=== PATIENT | male | born 1950 | race African-American/Black ===

== ENCOUNTER → 2017-06-10 | Outpatient (CLI) | payer MEDICARE, OTHER ==
[~2017-06-10] MED LIST: ACTOS30 MG PO; AMOXICILLIN 8751 TAB PO; BREO IH; CIPRO 500MG TA500 MG PO; COLACE 100100 MG/CAP PO; DIABETA 5MG5 MG/TAB PO; HCTZ 25MG TAB25 MG PO; HYTRIN 5MG C5 MG/CAP PO; HYTRIN10 M1 PO; JANUVIA50 MG PO; LANTUS SOLOS100 U/ML SQ; NORCO 325 MG-51 TAB; PLENDIL10 MG PO; PRINIVIL40 MG PO; PYRIDIUM200 M1 PO; ZESTRIL40 MG PO; ZOCOR 40MG40 MG PO; ZOCOR 80MG80 MG PO; ZYLOPRIM 100MG100 MG PO
== END ==
LOC: COL.RAD 09:04
DX: S34.112A Complete lesion of L2 level of lumbar spinal cord, initial encounter (principal)
CPT/HCPCS: A9503

== ENCOUNTER → 2017-06-17 | Outpatient (CLI) | payer MEDICARE, OTHER | LOC: MHCPAIN 10:43 | DX: G89.29 Other chronic pain (principal); M47.817 Spondylosis without myelopathy or radiculopathy, lumbosacral region; M48.061 Spinal stenosis, lumbar region without neurogenic claudication | CPT/HCPCS: G0463 ==

== ENCOUNTER 2018-10-14 14:52 | Inpatient (IN) | payer MEDICARE, OTHER ==
[~2018-10-14] VITALS: Ht 165.1 cm; Wt 103.2 kg
[2018-10-14 16:41] VITALS: BP 147/75; PULSE 119; TEMP 97.5
[2018-10-14 16:43] LABS: BASO % 0.3 % (0.0-2.0); EOS # 0.1 (0.0-0.7); EOS % 0.4 % (0-4.0); GRAN # 8.7 (1.4-6.5); GRAN % 77.5 % (42.2-75.2); HEMATOCRIT 40.8 % (42.0-52.0); HEMOGLOBIN 12.7 g/dl (13.5-18.0); LYMPH # 1.4 (1.2-3.4); LYMPH % 12.3 % (20.0-51.0); MEAN CELL VOLUME 90 fl (80.0-100.0); MEAN CORPUSCULAR HEMOGLOBIN 28 pg (27.0-31.0); MEAN CORPUSCULAR HGB CONC 31 g/dl (33.0-37.0); MEAN PLATELET VOLUME 10.4 fl (7.4-10.4); MONO % 9.2 % (1.7-9.3); PLATELET COUNT 188 K/mm3 (130-400); RED BLOOD COUNT 4.52 M/mm3 (4.20-5.60); REDCELL DISTRIBUTION WIDTH-CV 13.1 % (11.5-14.5)
[2018-10-14 17:20] LABS: ALBUMIN 4.5 gm/dL (3.5-5.0); BILIRUBIN,TOTAL 1.4 mg/dL (0.0-1.0); CALCIUM 10.1 mg/dL (8.4-10.2); CREATININE, serum 1.87 (0.66-1.25); POTASSIUM 4.6 mmol/L (3.4-5.0); TOTAL PROTEIN 8.2 gm/dL (6.4-8.2)
[2018-10-14] MEDS ORDERED: ZYLOPRIM 100MG100 MG PO (17:21)
[2018-10-14] MEDS ORDERED: PLENDIL 2.5MG2.5 MG PO (17:23)
[2018-10-14] MEDS ORDERED: HCTZ 25MG TAB25 MG PO (17:24)
[2018-10-14] MEDS ORDERED: CLARITIN 1010 MG/TAB PO (17:25)
[2018-10-14] MEDS ORDERED: SINGULAIR 110 MG/TAB PO (17:25)
[2018-10-14] MEDS ORDERED: ACTOS 45MG45 MG/TAB PO (17:26)
[2018-10-14] MEDS ORDERED: MIRALAX PA17 GM/Dose PO (17:27)
[2018-10-14] MEDS ORDERED: ZOCOR 40MG40 MG PO (17:27)
--- NOTE | 2018-10-14 17:38 | NUR ---
admitted patient to room 315 completed 5 page and med rec with patient and spouse.
[2018-10-14 17:44] LABS: TSH w REFLEX 1.1 uIU/mL (0.465-4.680)
[2018-10-14 19:17] VITALS: BP 161/60; PULSE 131; TEMP 99.2
[2018-10-14 19:18] VITALS: BP 161/60; PULSE 131; TEMP 99.2
--- NOTE | 2018-10-14 19:22 | NUR ---
Report received from DANA Dutta
--- NOTE | 2018-10-14 20:37 | NUR ---
Resting in bed. Assessment complete. Lungs clear. Heart sounds normal, tachy. Graciela, ONLINE BANKING SPECIALIST aware and EKG and telemetry applied to patient at beginning of shift. Fluid bolus infusing at 500ml/hr as ordered into right upper arm with complications for tachycardia. Bowels active x4. Pulses strong. No edema noted. Reports 10/10 left shoulder pain from recent fall. Will provided PRN tylenol as ordered. Denies other needs at this time. Call light in reach.
[2018-10-14 23:15] VITALS: BP 135/69; PULSE 117; TEMP 100.3
--- NOTE | 2018-10-15 | NUR ---
Resting in bed with at bedside. Denies needs. Call light in reach.
[2018-10-15 03:06] VITALS: BP 151/77; PULSE 109; TEMP 100.2
--- NOTE | 2018-10-15 03:15 | NUR ---
Low grade temp at 100.2 and left shoulder pain. Provided PRN tylenol. Will monitor.
[2018-10-15 04:03] VITALS: TEMP 99.8
[2018-10-15 06:58] VITALS: BP 152/74; PULSE 101; TEMP 98.4
--- NOTE | 2018-10-15 07:41 | NUR ---
Patient had left shoulder pain throughout night. Provided with PRN tylenol as ordered. Otherwise uneventful night. at bedside. Report given to DANA Rogers.
[2018-10-15 07:57] LABS: BASO % 0.4 % (0.0-2.0); EOS # 0.1 (0.0-0.7); EOS % 0.6 % (0-4.0); GRAN # 8.3 (1.4-6.5); GRAN % 74.9 % (42.2-75.2); HEMATOCRIT 37.6 % (42.0-52.0); HEMOGLOBIN 11.8 g/dl (13.5-18.0); LYMPH # 1.4 (1.2-3.4); LYMPH % 12.5 % (20.0-51.0); MEAN CELL VOLUME 91 fl (80.0-100.0); MEAN CORPUSCULAR HEMOGLOBIN 29 pg (27.0-31.0); MEAN CORPUSCULAR HGB CONC 31 g/dl (33.0-37.0); MEAN PLATELET VOLUME 10.6 fl (7.4-10.4); MONO # 1.2 (0.1-0.6); MONO % 11.1 % (1.7-9.3); PLATELET COUNT 177 K/mm3 (130-400); RED BLOOD COUNT 4.14 M/mm3 (4.20-5.60); REDCELL DISTRIBUTION WIDTH-CV 13.1 % (11.5-14.5)
[2018-10-15 08:05] LABS: CALCIUM 9.5 mg/dL (8.4-10.2); CREATININE, serum 1.66 (0.66-1.25); POTASSIUM 3.9 mmol/L (3.4-5.0)
--- NOTE | 2018-10-15 09:00 | NUR ---
Assessment complete. Patient A&Ox3. Patient rates pain at an 8 out of 10. Pain medication administred on SEP. Lung sounds clear, unlabored breathing. Normal heart sounds, tachycardic, tele on. Patient is on room air. IV in right upper arm, CDI, flushes easily with no report of pain. Patient is resting in bed with at bedside and has no further questions or needs. Call light within reach. Will continue to monitor patient.
--- NOTE | 2018-10-15 10:49 | NUR ---
OLYA student attended clinical rounds and followed up with patient and patient's to [facility] discharge plan. Patient lives in [place] with his (Ashley). Patient's PCP is Dr. Palm and he receives his medications from [facility] in [place]. Patient uses walker/cane and needs assistance using the restroom and bathing; patient's has been able to provide assistance up until this point. did express concern that she is having trouble providing assistance as patient is getting weaker. Iesha (IPR director) has been in contact with patient and patient's about possible rehab stay. and patient are open to the idea. PT/OT continue to work with patient. Patient does not currently have a DPOA-HC completed and was not interested in completing one at this time. OLYA to continue to follow.
[2018-10-15 11:55] VITALS: BP 157/75; PULSE 105; TEMP 99.1
--- NOTE | 2018-10-15 13:05 | NUR ---
OLYA monterroso met with patient and patient's to obtain the IPR patient choice form. Pateint was resting. OLYA student presented and explained the form to patient's (Ashley), patient and patient's had already discussed and chosen [facility] in [place]. Patient's signed. OLYA student provided copy.
[2018-10-15 16:08] LABS: COLLECTION METHOD CLEAN CATCH
[2018-10-15 16:26] LABS: PH 5 (5-8); SQUAMOUS EPITHELIAL 0-2 /hpf; URINE APPEARANCE Clear; URINE BACTERIA Moderate /hpf; URINE BILIRUBIN Negative (NEGATIVE); URINE BLOOD 2+ (NEGATIVE); URINE COLOR Yellow; URINE GLUCOSE Negative (NEGATIVE); URINE KETONE Trace (NEGATIVE); URINE LEUKOCYTE ESTERASE Negative (NEGATIVE); URINE NITRATE Positive (NEGATIVE); URINE PROTEIN(semi-quant) 2+ (NEGATIVE); URINE RBC 0-2 /hpf; URINE UROBILINOGEN Negative (NEGATIVE)
[2018-10-15 16:36] VITALS: BP 130/76; PULSE 81; TEMP 99.1
--- NOTE | 2018-10-15 19:00 | NUR ---
This RN unable to place IV X2 attempts. haroon Herreradata warehouse manager, unable to place an IV X2 attempts. Anesthesia consult placed for line placement NEVILLE Owens APRN.
[2018-10-15 20:32] VITALS: BP 147/90; PULSE 101; TEMP 98.6
--- NOTE | 2018-10-15 21:29 | NUR ---
Carlos from anesthesia attempted to start an IV x3, unsuccessful. MARQUES Owens notified. Push oral fluids over night, retry in AM.
[2018-10-15] MEDS ORDERED: ZESTRIL40 MG PO (21:54)
--- NOTE | 2018-10-15 22:05 | NUR ---
Resting in bed with at bedside. Assessment complete. Lungs clear. Heart sounds normal. Bowels active x4. Pulses present throughout. Bilateral lower leg edema present. Reports mild pain in left shoulder. No IV access at this time. states she is concerned with MRI/MRA patient is getting. Does not want patient to have "that much radiation." States she is upset with observation status and medicare pays for 2 days in hospital. Does not want patient drinking increased amounts of water for hydration. Refusing patient to have MRI/MRA in AM if creatine remains elevated. Educate on purpose of hydration and procedures. Would like MRI/MRA on outpatient basis and would like for patient to sleep all night. Patient okay with increasing fluids throughout night, drinking water at this time. states patient blood pressure elevated-states "systolic has never been that high." Asked if patient is prescribed home lisinopril 40mg at HS. Added to medication list. Spoke with Graciela after leaving patient room. Okay to continue lisinopril 40mg. Gave update on patient concerns. Will pass onto to next shift to inform Dr. Gardner.
[2018-10-16] VITALS (7 sets, daily range): BP systolic 143–166; BP diastolic 72–89; PULSE 97–116; TEMP 98.6–100.4
--- NOTE | 2018-10-16 00:10 | NUR ---
Resting in bed with at bedside. Call light in reach.
--- NOTE | 2018-10-16 03:34 | NUR ---
Up to restroom and returned to bed. Denies needs. Call light in reach.
[2018-10-16 06:20] LABS: BASO % 0.3 % (0.0-2.0); EOS # 0.1 (0.0-0.7); GRAN # 8.6 (1.4-6.5); GRAN % 74.9 % (42.2-75.2); HEMATOCRIT 37.1 % (42.0-52.0); HEMOGLOBIN 11.8 g/dl (13.5-18.0); LYMPH # 1.6 (1.2-3.4); LYMPH % 13.6 % (20.0-51.0); MEAN CELL VOLUME 89 fl (80.0-100.0); MEAN CORPUSCULAR HEMOGLOBIN 28 pg (27.0-31.0); MEAN CORPUSCULAR HGB CONC 32 g/dl (33.0-37.0); MEAN PLATELET VOLUME 10.7 fl (7.4-10.4); MONO # 1.1 (0.1-0.6); MONO % 9.8 % (1.7-9.3); PLATELET COUNT 204 K/mm3 (130-400); RED BLOOD COUNT 4.16 M/mm3 (4.20-5.60); REDCELL DISTRIBUTION WIDTH-CV 12.9 % (11.5-14.5)
[2018-10-16 06:35] LABS: CALCIUM 9.2 mg/dL (8.4-10.2); CREATININE, serum 1.57 (0.66-1.25); POTASSIUM 4.1 mmol/L (3.4-5.0)
--- NOTE | 2018-10-16 07:31 | NUR ---
Report given to DANA Rogers. Resting in bed this AM. Had uneventful night. Attempted to orally hydrate, does not argee with plan of care, will discuss with hospitalist this AM.
--- NOTE | 2018-10-16 08:53 | NUR ---
Assessment complete. Patient alert and oriented to person, place, and time. Patient states pain was a 6 out of 10, medication administered per MAR. Lung sounds clear in all shen, patient denies presence of cough and is on room air. Heart sounds are regular. Patient is tachycardic, on tele. Patient and state he has not had much urine output overnight. They have been informed of the need for a urine specimen. Patient and deny any further questions or needs. Call light is within reach. Will continue to monitor.
--- NOTE | 2018-10-16 13:05 | NUR ---
Patient has had decreased urine output. Bladder scanned, only presented with 38mL. Will continue to monitor.
--- NOTE | 2018-10-16 13:24 | NUR ---
First visit from the bar back. No needs right now.
--- NOTE | 2018-10-16 19:05 | NUR ---
[facility] at the bedside to attempt line placement unsuccessul X5 attempts. He suggests central line placement. MARQUES Dickerson, notified.
--- NOTE | 2018-10-16 19:39 | NUR ---
Telemetry called stating patient heart rate 130-150. Patient up ambulating in room to restroom. MARQUES Dickerson notified. No new orders at this time.
--- NOTE | 2018-10-16 20:00 | NUR ---
PT A&O X4. NO C/O PAIN AT THIS TIME. HAS BEEN AMBULATING TO BATHROOM WITH AT BEDSIDE. NO ISSUES OR CONSERNS VOICED AT THIS TIME.
[2018-10-17] VITALS (730 sets, daily range): BP systolic 117–152; BP diastolic 71–85; PULSE 100–113; TEMP 98.8–100.5; O2SAT 73–100
--- NOTE | 2018-10-17 | NUR ---
THIS NURSE RECIEVED CALL FROM [employer]. CHIEF OF STAFF STATED PT HAD A 8 SECOND PAUSE. THIS NURSE CHECKED ON PT. PT HAD NO COMPLAINTS OR VOICED ANY CHEST PAIN. THIS NURSE OBTAINED VITALS AND THEN CALLED [facility] MOHAN.
[2018-10-17 00:26] LABS: BASO % 0.4 % (0.0-2.0); EOS # 0.1 (0.0-0.7); EOS % 1.1 % (0-4.0); GRAN # 7.3 (1.4-6.5); GRAN % 71.1 % (42.2-75.2); LYMPH # 1.7 (1.2-3.4); LYMPH % 16.8 % (20.0-51.0); MEAN CELL VOLUME 90 fl (80.0-100.0); MEAN CORPUSCULAR HEMOGLOBIN 29 pg (27.0-31.0); MEAN CORPUSCULAR HGB CONC 32 g/dl (33.0-37.0); MEAN PLATELET VOLUME 10.2 fl (7.4-10.4); MONO # 1.1 (0.1-0.6); MONO % 10.2 % (1.7-9.3); PLATELET COUNT 181 K/mm3 (130-400); RED BLOOD COUNT 3.85 M/mm3 (4.20-5.60); REDCELL DISTRIBUTION WIDTH-CV 12.7 % (11.5-14.5)
[2018-10-17 00:28] LABS: HEMATOCRIT 34.5 % (42.0-52.0)
--- NOTE | 2018-10-17 00:28 | NUR ---
Patient arrived to the unit via stretcher. Assisted to ICU bed and attached to all monitor. Patient alert and in no distress. Denies any chest pain or shortness of breath. Awaiting Dr. Marks to come place a central line.
[2018-10-17 00:32] LABS: INR 1.1 (0.8-3.0); PROTHROMBIN TIME 12.3 SECONDS (9.7-12.8)
--- NOTE | 2018-10-17 00:34 | NUR ---
Dr. Marks in room to place central line. Explained procedure to patient.
[2018-10-17 00:47] LABS: CALCIUM 8.7 mg/dL (8.4-10.2); CREATININE, serum 1.6 (0.66-1.25); MAGNESIUM 1.7 mg/dL (1.6-2.3); POTASSIUM 4.1 mmol/L (3.4-5.0)
--- NOTE | 2018-10-17 03:51 | NUR ---
Central line dressing changed per Dr. Marks due to oozing of blood after inital dressing placement. Tolerated well. Will continue to monitor.
[2018-10-17 05:25] LABS: BASO % 0.3 % (0.0-2.0); EOS # 0.1 (0.0-0.7); EOS % 0.9 % (0-4.0); GRAN # 6.8 (1.4-6.5); GRAN % 70.8 % (42.2-75.2); HEMOGLOBIN 11.3 g/dl (13.5-18.0); LYMPH # 1.7 (1.2-3.4); LYMPH % 17.4 % (20.0-51.0); MEAN CELL VOLUME 89 fl (80.0-100.0); MEAN CORPUSCULAR HEMOGLOBIN 28 pg (27.0-31.0); MEAN CORPUSCULAR HGB CONC 32 g/dl (33.0-37.0); MEAN PLATELET VOLUME 10.4 fl (7.4-10.4); MONO % 10.2 % (1.7-9.3); PLATELET COUNT 213 K/mm3 (130-400); RED BLOOD COUNT 4.02 M/mm3 (4.20-5.60); REDCELL DISTRIBUTION WIDTH-CV 12.9 % (11.5-14.5)
[2018-10-17 05:27] LABS: HEMATOCRIT 35.8 % (42.0-52.0)
[2018-10-17 05:38] LABS: CREATININE, serum 1.62 (0.66-1.25); POTASSIUM 4.2 mmol/L (3.4-5.0)
--- NOTE | 2018-10-17 10:46 | NUR ---
SW and OLYA student attended clinical rounds. The patient is to have a bubble study done today. SW to update IPR Director, Iesha.
--- NOTE | 2018-10-17 11:16 | NUR ---
cONSENT SIGNED AND BED SIDE TIME OUT CONDUCTED, dR. GODOY AND , Wes RICHARDS AT BEDSIDE FOR MOD SEDATION. RN CAREETA PRESENT AT BEDSIDE AND EVERONE INAGREEMENT
--- NOTE | 2018-10-17 11:17 | NUR ---
PROCEDURE AT BEDSIDE STARDED
--- NOTE | 2018-10-17 11:54 | NUR ---
Pt with mod sedation score of 9, awake a/ox4 denies pain, voice clear. 2 removed and pt able to maintain spos of 97% on RM, will call pt to bedside and continue to monitor. Pt color normal BP 140/84 HR-103
--- NOTE | 2018-10-17 12:15 | NUR ---
Order received for loop recorder implant. Pt hx of 6 second pause. Consent obtained and pt prepped and draped at 1215. Dr. Smith contacted at 1217 and arrived at 1220. A time out was performed at bedside with all staff present at 1222. 10ml of sensorcaine 0.5% given subcutaneously for a local anesthetic. A [employer] loop recorder was implanted sucessfully. Wound closure by Dr. Smith with 3-0 vicryl, one stitch. Hemostasis achieved and dry gauze dressing applied. Home monitor paired and patient educated on use. Report to AGRICULTURAL REAL ESTATE AGENT.
--- NOTE | 2018-10-17 18:34 | NUR ---
Pt recieved MARCEL and loop recorder today. Rep came back to bedside to explain loop recorder. VSS throughout shift, denied pain throughout shift. MD Dr. Marks came to bedside to explain need for MRA to r/o possible brain abscess. stated she want to talk it over with pt more tomorrow and want to allow pt to rest tonight. will pass on information in report and update MD and continue to monitor.
--- NOTE | 2018-10-17 19:18 | NUR ---
Pt and family have now decieded to carry on with MRA
--- NOTE | 2018-10-17 21:28 | NUR ---
Patient restless in bed and attempting to reposition himself. HR 115-120 sinus tach. Assisted with repositioning. Notified hospitalist of tachycardia and temp of 100.5. Received order to give PRN Tylenol per hospitalist.
[2018-10-18] VITALS (524 sets, daily range): BP systolic 142–161; BP diastolic 53–88; PULSE 98–111; TEMP 97.8–100.1; O2SAT 86–100
--- NOTE | 2018-10-18 03:25 | NUR ---
Patient awake and resting in room; reports feeling "fine". No concerns at this time.
--- NOTE | 2018-10-18 04:46 | NUR ---
PRN Tylenol administered for Left elbow pain. No swelling or new injury noted. Propped up elbow on pillow. Will continue to monitor.
[2018-10-18 06:19] LABS: BASO % 0.3 % (0.0-2.0); EOS # 0.1 (0.0-0.7); EOS % 1.4 % (0-4.0); GRAN # 7.2 (1.4-6.5); GRAN % 72.2 % (42.2-75.2); LYMPH # 1.6 (1.2-3.4); LYMPH % 15.9 % (20.0-51.0); MEAN CELL VOLUME 90 fl (80.0-100.0); MEAN CORPUSCULAR HGB CONC 31 g/dl (33.0-37.0); MEAN PLATELET VOLUME 10.2 fl (7.4-10.4); MONO % 9.8 % (1.7-9.3); PLATELET COUNT 190 K/mm3 (130-400); RED BLOOD COUNT 3.41 M/mm3 (4.20-5.60); REDCELL DISTRIBUTION WIDTH-CV 12.9 % (11.5-14.5)
[2018-10-18 06:26] LABS: HEMATOCRIT 30.8 % (42.0-52.0); HEMOGLOBIN 9.6 g/dl (13.5-18.0); MEAN CORPUSCULAR HEMOGLOBIN 28 pg (27.0-31.0)
[2018-10-18 06:31] LABS: CALCIUM 8.5 mg/dL (8.4-10.2); CREATININE, serum 1.37 (0.66-1.25)
--- NOTE | 2018-10-18 07:15 | NUR ---
Report received from DANA Maynard. PT in bed, uncomfortable in position, boosted in the bed. NPO until MRI, will continue ot monitor.
--- NOTE | 2018-10-18 09:28 | NUR ---
Assessment hcarted. PT has soreness in L elbow and feet, chronic feet issue from diabetes. Up to commode for bowel movement, assistance of 2 people, gait shuffling and very unsteady. Pt able to answer all orientation questions except current year and day of week. at bedside. MRI cancelled due to loop recorder placement. Hands swollen, asked about PRN HCTZ, will address with hospitalist. R IJ triple lumen good blood return and flushes well. Will continue to monitor.
--- NOTE | 2018-10-18 10:53 | NUR ---
Called Dr. Zamora and gave him updated information and reason for consult. He will review chart and place orders/recommendations.
--- NOTE | 2018-10-18 14:53 | NUR ---
Report given to DANA Moore. Pt in bed transferred wt 2 person assist to w/c, transported to medical room 358 via wheelchair. DANA Kathleen in ICU gave information regarding loop recorder to patient and family. Family brought all belongings up to medical. Pt placed in recliner with call light. Teresa to resume care.
--- NOTE | 2018-10-18 15:12 | NUR ---
Pt transfered from ICU and resting in chair. Pt alert and oriented and denied pain. Pt's in rm. Pt and oriented to , call light, dinning service. No concern at this time. Call light in reach.
--- NOTE | 2018-10-18 16:23 | NUR ---
Pt resting in chair and no concern. Call light in reach.
[2018-10-18 17:28] LABS: HEMATOCRIT 32.9 % (42.0-52.0); HEMOGLOBIN 10.3 g/dl (13.5-18.0)
--- NOTE | 2018-10-18 17:44 | NUR ---
Pt resting in bed and talking to family. Call light in reach.
--- NOTE | 2018-10-18 19:29 | NUR ---
Report given to DANA Bee. Pt resting in bed. Call light in reach.
--- NOTE | 2018-10-18 21:30 | NUR ---
pATIENT RESTING IN BED. ASSESSMENT COMPLETED- LUNGS CLEAR, ABDOMINAL SOUNDS ACTIVE, NO REPORTS OF PAIN AT THIS TIME. 2:1 ASSIST WITH WALKER. IV ANTIBIOTICS ADMINISTERED. DISCUSSED WITH FAMILY INFECTIOUS DISEASE ORDERED LABS FOR AM, CONTINUING WITH ANTIBIOTICS AT THIS TIME. NO NEEDS AT THIS TIME.
[2018-10-19] VITALS (8 sets, daily range): BP systolic 138–167; BP diastolic 70–98; PULSE 92–118; TEMP 97.9–100.8
--- NOTE | 2018-10-19 00:54 | NUR ---
Helped patient to bedside commode. Pt's family very upset at this time that pt has not been recieving his HCTZ. This nurse explained that we were waiting for morning labs to assess kidney function and would consider restarting it at that time. Pt would like the issue addressed now. MARQUES Dickerson notified and this information was relayed. Jayla reordered pt's HCTZ 25 mg and it will be administered now.
--- NOTE | 2018-10-19 05:20 | NUR ---
Pt slept on/off last night. Had difficulty ambulating to restroom, used bedside commode with 2:1 assist this time. Family at bedside. No needs at this time.
--- NOTE | 2018-10-19 06:53 | NUR ---
REPORT GIVEN TO DANA ALMANZA.
--- NOTE | 2018-10-19 08:34 | NUR ---
Assessment completed, alert/oriented, vital signs stable, report not feeling any better/ or any worse today, stated he can barely stand up, denies pain / just has extreme weakness, upset that we are not finding anyting out and "not doing anything for him", I have tried to discuss plan of care and do education but not interested at this time, patient continues to run Sinus tachy on tele, distal pulses are palpable and lungs CTA/ disminished in bases, he does have some mild edema to BLE, no neuro deficits noted/ motel keeper equal / pupils equal and reactive, sitting up in the chair eating breakfast, jose g other needs at this time reports they are refusing any further test/ CT/ MRI at this time, and she wants to be discharge to inpatient rehab , I have expalained I will discuss this with the attending physcian today
[2018-10-19 09:48] LABS: BASO % 0.3 % (0.0-2.0); EOS # 0.2 (0.0-0.7); EOS % 1.6 % (0-4.0); GRAN # 8.7 (1.4-6.5); HEMOGLOBIN 10.2 g/dl (13.5-18.0); LYMPH # 1.5 (1.2-3.4); LYMPH % 12.9 % (20.0-51.0); MEAN CELL VOLUME 90 fl (80.0-100.0); MEAN CORPUSCULAR HEMOGLOBIN 28 pg (27.0-31.0); MEAN CORPUSCULAR HGB CONC 31 g/dl (33.0-37.0); MEAN PLATELET VOLUME 10.2 fl (7.4-10.4); MONO % 8.8 % (1.7-9.3); PLATELET COUNT 218 K/mm3 (130-400); RED BLOOD COUNT 3.64 M/mm3 (4.20-5.60)
[2018-10-19 09:56] LABS: CALCIUM 9.2 mg/dL (8.4-10.2); CREATININE, serum 1.46 (0.66-1.25); POTASSIUM 4.1 mmol/L (3.4-5.0)
[2018-10-19 10:02] LABS: HEMATOCRIT 32.7 % (42.0-52.0)
[2018-10-19 10:47] LABS: HIV 1/2 Antibodies Non-Reactive; HIV-1p24 Antigen Non-Reactive
[2018-10-19 12:34] LABS: RPR (VDRL) XXX
--- NOTE | 2018-10-19 20:00 | NUR ---
PT IN BED WITH HOB ELEVATED 45 DEGREE ANGLE. PT DENIES PAIN OR DISCOMFORT. PT HAS LEFT SIDED WEAKNESS AND EDEMA TO UPPER AND LOWER EXTREMITY. PT HAS FAMILY IN ROOM WITH PT, CALL LIGHT WITHIN REACH AND NO FURTHER NEEDS AT THIS TIME.
--- NOTE | 2018-10-19 20:51 | NUR ---
CALLED [facility] MOHAN IN REFERENCE TO PT'S TEMP ADVISED WILL GIVE TYLENOL FOR TEMP. NO FURTHER ORDERS FOR PT.
--- NOTE | 2018-10-20 04:10 | NUR ---
PT RESTING/SLEEPING IN BED WITH NO C/O PAIN OR DISCOMFORT. AND DAUGHTER AT BEDSIDE, CALL LIGHT WITHIN REACH.
[2018-10-20 04:57] VITALS: BP 147/84; PULSE 103; TEMP 98.2
[2018-10-20 06:23] LABS: MEAN CELL VOLUME 90 fl (80.0-100.0); MEAN CORPUSCULAR HGB CONC 31 g/dl (33.0-37.0); MEAN PLATELET VOLUME 10.3 fl (7.4-10.4); PLATELET COUNT 243 K/mm3 (130-400); RED BLOOD COUNT 3.54 M/mm3 (4.20-5.60); REDCELL DISTRIBUTION WIDTH-CV 12.8 % (11.5-14.5)
[2018-10-20 06:25] LABS: HEMATOCRIT 31.9 % (42.0-52.0); HEMOGLOBIN 9.9 g/dl (13.5-18.0); MEAN CORPUSCULAR HEMOGLOBIN 28 pg (27.0-31.0)
[2018-10-20 06:36] LABS: EOSINOPHIL 1 % (0-4); LYMPHOCYTE 21 % (20.0-51.0); NEUTROPHILS 70 % (42.0-75.2); PLATELET ESTIMATE NORMAL (NORMAL)
--- NOTE | 2018-10-20 06:37 | NUR ---
NON-EVENTFUL NIGHT. PT SLEPT/RESTED WELL WITH NO S/S OF PAIN OR DISCOMFORT NOTED. IN ROOM AND CALL LIGHT WITHIN REACH.
[2018-10-20 06:40] LABS: ALBUMIN 3.4 gm/dL (3.5-5.0); BILIRUBIN,TOTAL 0.9 mg/dL (0.0-1.0); CALCIUM 8.9 mg/dL (8.4-10.2); CREATININE, serum 1.4 (0.66-1.25); POTASSIUM 3.9 mmol/L (3.4-5.0); TOTAL PROTEIN 6.7 gm/dL (6.4-8.2)
[2018-10-20 07:58] VITALS: BP 164/86; PULSE 100; TEMP 98.7
--- NOTE | 2018-10-20 08:20 | NUR ---
Pt alert but confused at times. Pt unsteady and requires 1-2 assist to stand. Pt stands hands and feet hurt r/t tingling pain. Pt RIJ patent and no redness or infiltration. Pt has spouse and daughter at bedside and call light in reach. Pt denies SOB at rest. Pt HR increases with exertion but denies chest pain.
--- NOTE | 2018-10-20 08:38 | NUR ---
Pt IV varghese put on standby for pt to go downstairs for CT with contrast.
--- NOTE | 2018-10-20 10:54 | NUR ---
OLYA attended clinical rounding. Patient is still spiking fevers and is declining physically. IPR is still following however dr is going to contact [facility] to discuss transfer patient. Will continue to follow.
--- NOTE | 2018-10-20 11:00 | NUR ---
Pt alert and oriented this am. Pt has spouse and daughter at bedside. Pt RIJ flushed and good blood return noted each lumen x3. Pt has pain in hands and feet from tingling reported but denies need for pain med. Pt family advised to call for help to assist patient to get up if pt feeling unsteady or dizzy. Pt family state that they can do it without our help and have been doing OK. Education provided on fall precautions and prevention. Pt am assessment completed. Pt denies needs and has call light in reach.
[2018-10-20 11:07] VITALS: BP 142/98; BP 154/84; PULSE 94; TEMP 98.4
[2018-10-20 13:27] VITALS: BP 154/84; PULSE 94; TEMP 98.4
[2018-10-20 15:46] VITALS: BP 140/72; PULSE 101; TEMP 98.8
--- NOTE | 2018-10-20 16:00 | NUR ---
Pt transferred to via EMS. Papers and report given to EMS upon arrival. Pt spouse and daughter have directions. Pt report called to .
[2018-10-20 16:14] LABS: COLLECTION METHOD CLEAN CATCH
[2018-10-20 16:22] LABS: MUCOUS Present /lpf; PH 5 (5-8); SQUAMOUS EPITHELIAL 0-2 /hpf; URINE APPEARANCE Clear; URINE BACTERIA None Seen /hpf; URINE BILIRUBIN Negative (NEGATIVE); URINE BLOOD 2+ (NEGATIVE); URINE COLOR Yellow; URINE GLUCOSE Negative (NEGATIVE); URINE KETONE Trace (NEGATIVE); URINE LEUKOCYTE ESTERASE 1+ (NEGATIVE); URINE NITRATE Negative (NEGATIVE); URINE PROTEIN(semi-quant) 2+ (NEGATIVE); URINE UROBILINOGEN Negative (NEGATIVE)
[2018-10-21 13:48] LABS: TOXOPLASMA AB, IGG Negative (Negative); TOXOPLASMA AB, IGM Negative (Negative)
== END 2018-10-20 16:15 | disposition short-term general hospital (02) | DRG 40 ==
LOC: MEDICAL 14:52 → ICU 10-17 02:08 → MEDICAL 10-18 14:54
PROVIDERS: Family Medicine; Internal Medicine Infectious Disease; Nurse Practitioner Family; Physician Assistant; ADMIT Hospitalist
PROC: 0JH602Z Insertion of Monitoring Device into Chest Subcutaneous Tissue and Fascia, Open Approach (ICD-10-PCS; principal; 2018-10-17)
DX: I63.9 Cerebral infarction, unspecified (principal); G06.0 Intracranial abscess and granuloma; N39.0 Urinary tract infection, site not specified; N17.9 Acute kidney failure, unspecified; R53.1 Weakness; Z91.81 History of falling; I12.9 Hypertensive chronic kidney disease with stage 1 through stage 4 chronic kidney disease, or unspecified chronic kidney disease; N18.3 Chronic kidney disease, stage 3 (moderate); E11.42 Type 2 diabetes mellitus with diabetic polyneuropathy; S46.212A Strain of muscle, fascia and tendon of other parts of biceps, left arm, initial encounter; F01.50 Vascular dementia, unspecified severity, without behavioral disturbance, psychotic disturbance, mood disturbance, and anxiety; B95.2 Enterococcus as the cause of diseases classified elsewhere; E11.22 Type 2 diabetes mellitus with diabetic chronic kidney disease; W18.30XA Fall on same level, unspecified, initial encounter; Z85.46 Personal history of malignant neoplasm of prostate; M48.061 Spinal stenosis, lumbar region without neurogenic claudication; G89.29 Other chronic pain; E78.5 Hyperlipidemia, unspecified; D64.9 Anemia, unspecified; Z86.73 Personal history of transient ischemic attack (TIA), and cerebral infarction without residual deficits; R00.0 Tachycardia, unspecified; J45.909 Unspecified asthma, uncomplicated
CPT/HCPCS: OP; 99223-AI; 99232-AI; 99233-AI; 99239; C1764; G0378; J0696; J1644; J1815; J2704; J3010; J3475; J7030; J7040; Q9967

== ENCOUNTER 2018-10-23 15:23 | Inpatient (IN) | payer MEDICARE, OTHER ==
[~2018-10-23] VITALS: Ht 165.1 cm; Wt 102.5 kg
[~2018-10-23 15:23] MED LIST changes: +ACTOS 45MG45 MG/TAB PO; +CLARITIN 1010 MG/TAB PO; +MIRALAX PA17 GM/Dose PO; +PLENDIL 2.5MG2.5 MG PO; +SINGULAIR 110 MG/TAB PO
[2018-10-23] MEDS ORDERED: ASPIRIN 81M81 MG/TA2 PO (20:51)
[2018-10-23] MEDS ORDERED: NORVASC 10MG10 MG PO (20:52)
[2018-10-23] MEDS ORDERED: BACTRIM DS 8001 TAB PO (20:52)
[2018-10-23] MEDS ORDERED: ZYLOPRIM 100MG100 MG PO (20:53)
[2018-10-23] MEDS ORDERED: FLONASEALLERGY NS (20:54)
[2018-10-23] MEDS ORDERED: DIABETA 5MG5 MG/TAB PO (20:55)
[2018-10-23] MEDS ORDERED: ACTOS 45MG45 MG/TAB PO (21:10)
[2018-10-23 21:22] VITALS: BP 140/68; PULSE 105; TEMP 98.8
[2018-10-24 04:36] VITALS: BP 162/88; PULSE 100; TEMP 98.4
--- NOTE | 2018-10-24 13:14 | NUR ---
Patient attended therapies this morning and is currently working with OT at this time. Patient was seen by Dr. Santiago and received orders to remove 3 lumen IJ.
--- NOTE | 2018-10-24 15:23 | NUR ---
Removed IJ central catheter with help of ICU nurse Kylah. Patient tolerated well. Small bloody drainage, but with pressure has stopped. Secured with gauze and tegaderm. Will continue to monitor.
--- NOTE | 2018-10-24 15:24 | NUR ---
OLYA met with patient and for initial intake. Patient lives independently at home with his . Patient's PCP is Dr Palm and he obtains prescriptions from [facility]. Patient uses a walker at home but no other DME is reported and he does not use any home health services. Patient does not have a DPOA and his reports they are working on obtaining one. OLYA informed patient and his about IPR team conference that happens every saturday. OLYA reports if patient's is not here at the time notes are distributed, OLYA will contact her via phone. OLYA will continue to follow.
[2018-10-24 18:45] VITALS: BP 147/67; PULSE 108; TEMP 98.8
--- NOTE | 2018-10-24 19:26 | NUR ---
Patient attended all therapies. Currently resting in recliner, with family by his side. Patient tolerated diet well this shift. Denies pain. No BM today, was given a REHAB cocktail this evening. Will continue to monitor.
--- NOTE | 2018-10-24 23:51 | NUR ---
PT TRANSFERRED TO BED FROM CHAIR WITH WALKER. 2:1 ASSIST. UNSTEADY. NEEDS CUEING TO SQUARE UP TO BED. TRYING TO SIT ON SIDE RAIL. PT WEARS BRIEFS FOR INCONT. WET AT THIS TIME. CHANGED. RT SIDE WEAKER THAN LT. SLOW THOUGHT PROCESS. CALL LIGHT IN REACH. BED ALARM SET.
--- NOTE | 2018-10-25 03:30 | NUR ---
PT HALF OUT OF BED. CHANGED WET BRIEF. ASSISTED TO RECLINER. SHUFFLING GAIT. PT ANSWERS SIMPLE QUESTIONS ACCURATELY. BUT SLOW THOUGHT PROCESS. CHAIR ALARM SET. CALL LIGHT IIN REACH.
[2018-10-25 05:13] VITALS: BP 147/73; PULSE 111; TEMP 98.9
--- NOTE | 2018-10-25 11:28 | NUR ---
Patient's Ashley requested that patient be given his Lisinopril, Actos and Lipitor @ HS. This was changed in EMAR. Will continue to monitor. had stated that they were to be given at that time due to elevated blood pressures as night. She wants him to be on the same med regiman as what will be on when goes home.
--- NOTE | 2018-10-25 11:34 | NUR ---
Patient given miralax to assist with him having a BM today. Will continue to monitor.
--- NOTE | 2018-10-25 14:55 | NUR ---
Patient given a suppository. Tolerated well.
[2018-10-25 18:15] VITALS: BP 110/61; PULSE 105; TEMP 98.8
--- NOTE | 2018-10-25 20:00 | NUR ---
PT SITTING IN RECLINER. FAMILY HERE. K PAD OVER HIS FEET AT THIS TIME. FEET ELEVATED FOR EDEMA. PT ANSWERS SIMPLE ROUTINE QUESTIONS EASILY. TAKES MY LONG TO THINK ANSWERS TO COMPLEX QUESTIONS. MANY TIMES SEEM UNSURE OF HOW TO ANSWER QUESTIONS. CONVERSES VERY LITTLE. LOOP RECORDER SUTURE SITE INTACT. NO CARDIAC EPISODE THAT PT IS AWARE OF. HR TACHY 105. PT ADMITS TO ACHINESS FROM PT TODAY. TYLENOL GIVEN. PT WANTS TO REMAIN IN RECLINER FOR NOW. BRIEFS DRY AT THIS TIME.
--- NOTE | 2018-10-25 23:00 | NUR ---
2:1 ASSIST PT TO BSC TO VOID. UNBLE TO AT THIS TIME. TRANSFERRED TO BED. VERY UNSTEADY. SHUFFLING GAIT. HAS SOME DIFFICULUTY FOLLOWING DIRECTIONS. CALL LIGHT IN REACH. BED ALARM SET.
[2018-10-26 06:01] VITALS: BP 120/70; PULSE 92; TEMP 98
--- NOTE | 2018-10-26 09:21 | NUR ---
Report from DANA Davies. Pt has SCDs off as he is out of bed for breakfast in chair. Alarm on, call light in reach. Pt takes pills with water. Denies pain, just cold feet. Set up KPAD on legs with extra blanket.
--- NOTE | 2018-10-26 13:00 | NUR ---
arrived, pt amb to BR, had incont of urine contained within depends, assisted to change.
--- NOTE | 2018-10-26 13:11 | NUR ---
verbalized that pt does not speak up for himself, concerned that he is depressed because staff undressed him for the night and took off his pj bottoms and t-shirt. states that she will start staying overnight to ensure pt's needs/wishes are met.
--- NOTE | 2018-10-26 13:50 | NUR ---
also comments that this nurse discouraged family from staying overnight- specifically informed when she asked that we did not expect her to stay over, she may if she likes. Did stress that staff are the only ones allowed to get pt up d/t safety/liability. Will communicate with director as says she will talk with her.
[2018-10-26 18:00] VITALS: BP 110/52; PULSE 99; TEMP 99.1
--- NOTE | 2018-10-26 20:00 | NUR ---
TRANSFERRED PT TO BED WITH WALKER. NEEDED MUCH CUES WITH AMB. DENIES NEED TO VOID AT THIS TIME. BREIFS ARE DRY. NEEDED ASSIST WITH LIFTING LEGS INTO BED. WANTS KPAD TO FEET. DENIES BACK PAIN. CALL LIGHT IN REACH. BED ALARM SET. AT BEDSIDE. VERY UPSET ABOUT PJ PANTS TAKEN OFF AT NIGHT. ATTEMPTED TO PROVIDE REASONING. SHE RELATED HE GETS VERY COLD AT NIGHT AN HE WANTS THEM ON. REASSURED HER WE WOULD LEAVE PANTS ON AT NIGHT. VERBALLY AGGRESSIVE. ALLOWED HER TO VERBALIZE FEELINGS. OFFERED TO CALL DON FOR HER TO SPEAK TO. REFUSED FOR THIS NURSE TO CONTACT HER. RELATED SHE KNOWS HOW. [facility]DS ABOUT [facility]IT[facility]ATION. RELASTED SHE WAS STAYING THE NIGHT WITH PT. OFFERED BLANKET AND PILLOW- DECLINED.
--- NOTE | 2018-10-26 22:00 | NUR ---
PT REFUSED SCD'S. REVIEWED THE IMPORTANCE. STILL DECLINED.
--- NOTE | 2018-10-26 22:30 | NUR ---
PT DECLINED TO USE BR. SANGEETHAIFS DRY. FOUNDS BLANKETS OFF PT AT THE END OF BED. OFFERED TO COVER PT. PT WANTED SHEET ONLY. SITTING UP ON SOFA.
--- NOTE | 2018-10-27 00:30 | NUR ---
PT DECLINED BR OR URINAL. BRIEFS DRY.
--- NOTE | 2018-10-27 01:20 | NUR ---
BED ALARM SOUNDING. WAS GETTING PT UP HERSELF TO BR. REVIEWED IPR POLICY. MAX 1 ASSIST TO BR WITH WALKER. SMALL SHUFFLING GAIT. LEANS BACK- VERY UNSTEADY. VOIDED IN BRIEF AND ON FLOOR. CHANGED BRIEFS. ASSISTED BACK TO BED. PT DECLINED ALL BLANKETS. CALL LIGHT IN REACH. BED ALARM ON. PT DENIED PAIN.
--- NOTE | 2018-10-27 03:45 | NUR ---
PT DENIES PAIN OR NEED TO VOID. REMAINS REGULAR TACHYCARDIC AT 101. OTHERWISE VSS. PT ABLE TO POSITION SELF FOR COMFORT. DENIES FURTHER NEEDS AT THIS TIME.
[2018-10-27 04:09] VITALS: BP 136/63; PULSE 101; TEMP 98.6
--- NOTE | 2018-10-27 10:16 | NUR ---
Patient resting in recliner at this time, call light in reach and chair alarm in on. Patient attended PT and ST this morning. Denies pain at this time, but did report a headache this morning and was given prn tylenol early this am. Will continue to monitor.
--- NOTE | 2018-10-27 11:02 | NUR ---
Call placed to Dr. Smith's office [phone], left a message awaiting a return call. Asking when loop recorder stitches are due to come out and if our nurse can do this.
--- NOTE | 2018-10-27 11:25 | NUR ---
Received call from Dr. Smith's nurse. Okay with our nursing staff removing stitches to loop recorder site. He also has a follow up appointment with Dr. Smith's office on December 03 at 10:45 AM.
--- NOTE | 2018-10-27 13:33 | NUR ---
SW met with patient to check in after the weekend. Patient reports he had a good weekend and does not currently have any questions or concerns. SW also informed patient that the team will sometimes like to have a family meeting with patient and family. At this time, there is not one needing to be scheduled but SW will contact patient's family to schedule one when it is needed.
[2018-10-27 15:22] VITALS: BP 101/52; PULSE 101; TEMP 98.6
--- NOTE | 2018-10-27 17:50 | NUR ---
Patient refused having his lab drawn this morning. This was communicated to Dr. Santiago. Patient's discussed this issue with this nurse and this nurse reported that he had that right to refuse, but if his condition should change we would have to readress this issue. She voiced understanding. Will continue to monitor.
--- NOTE | 2018-10-27 23:00 | NUR ---
PT BLOOD SUGAR HIGH THIS NOC. PT VOICED CONSERN. THIS NURSE INFORMED PT AND THAT glyBURIDE DOSE WAS INCREASED TO 10MG STARTING IN THE AM. PT WAS ALSO ADMINISTERED SLIDING SCALE INSULIN ORDERED.
--- NOTE | 2018-10-27 23:00 | NUR ---
PT HAS BEEN RESTING IN BED AND READY FOR BED AT THIS TIME. PT DID HAVE C/O HEADACHE THAT RETURNED FROM EARLIER. TYLENOL WAS ADMINSITERED. NO OTHER C/O PAIN.
--- NOTE | 2018-10-28 05:43 | NUR ---
PT HAD UNEVENTFUL NOC. APPEARED TO HAVE SLEPT WELL. NO FURTHER C/O PAIN. NO NOTED N/V/D.
[2018-10-28 05:46] VITALS: BP 156/71; PULSE 107; TEMP 98.8
--- NOTE | 2018-10-28 07:59 | NUR ---
Report from DANA Read. Pt's in room assisting with pt cares. HAIR Tobin reports pt was incont of urine within brief. Pt requested flonase for headache. Tylenol also given. SCDs off as pt to chair for breakfast.
--- NOTE | 2018-10-28 12:29 | NUR ---
HAIR Tobin reports pt's assisted pt with dressing, brushing hair and teeth, and declined suggestion to change pt's own gripper socks to hospital gripper socks after Mahad informed that pt was sliding in his own socks. asked this nurse why the doctor did not see pt today. Informed that the doctor was rounding on new pts and the doctor will see IPR pts three times a week, doctor will be in sometime tomorrow. Asked what questions does she have for the doctor, she replied, "I don't know what questions I have because I haven't met the doctor to know what he thinks about [place]." Informed the that there is no specific time that the doctor makes rounds, as she implied the doctor always comes at noon.
[2018-10-28 15:36] VITALS: BP 100/50; PULSE 100; TEMP 98.2
--- NOTE | 2018-10-28 21:45 | NUR ---
Shift assessment complete. Patient in bed. at bedside. Patient c/o 02/14 headache. Prn tylenol given. Will continue to assess.
[2018-10-28 21:47] VITALS: BP 123/70
[2018-10-29 04:00] VITALS: BP 150/83; PULSE 104; TEMP 98.5
--- NOTE | 2018-10-29 14:51 | NUR ---
SW attended a family conference with patient and his . Also present was IPR director, PT, OT, and Speech. IPR director started with explaining the purpose of the conference. PT, OT, and Speech, reported that patient made progress since admission but think that patient would benefit to staying at least another week to continue making progress. Patient questioned if patient would be able to meet all of the therapy goal within a week. Patient reports he feels that "this is how is going to be now and I will be a criple." The IPR team reassured him that they will continue to work with him and help make progress to ensure a safe discharge. OT also inquired if patient and would like to do a home eval next week. Patient's would like to think about that and report back later. There is no tentative discharge date at this time but the plan is to re-evaluate next week during IPR team conference. It is recommended that patient will need home health services when discharged and SW will follow up with patient and about home health options. OLYA will also follow up with patient later today with IPR team conference notes.
--- NOTE | 2018-10-29 16:28 | NUR ---
Patient resting in recliner at this time, call light in reach and alarm is on. is by his side. Patient sleeping at this time. Attended all therapies today and tolerated diet well. Will continue to monitor.
[2018-10-29 17:30] LABS: BASO % 0.4 % (0.0-2.0); EOS # 0.1 (0.0-0.7); EOS % 1.4 % (0-4.0); GRAN # 5.3 (1.4-6.5); GRAN % 65.8 % (42.2-75.2); HEMATOCRIT 33.6 % (42.0-52.0); HEMOGLOBIN 10.4 g/dl (13.5-18.0); LYMPH # 1.7 (1.2-3.4); MEAN CELL VOLUME 92 fl (80.0-100.0); MEAN CORPUSCULAR HEMOGLOBIN 28 pg (27.0-31.0); MEAN CORPUSCULAR HGB CONC 31 g/dl (33.0-37.0); MEAN PLATELET VOLUME 9.6 fl (7.4-10.4); MONO # 0.8 (0.1-0.6); MONO % 10.3 % (1.7-9.3); PLATELET COUNT 337 K/mm3 (130-400); RED BLOOD COUNT 3.67 M/mm3 (4.20-5.60); REDCELL DISTRIBUTION WIDTH-CV 14.8 % (11.5-14.5)
[2018-10-29 17:36] LABS: CALCIUM 9.7 mg/dL (8.4-10.2); CREATININE, serum 2.39 (0.66-1.25); MAGNESIUM 1.9 mg/dL (1.6-2.3); POTASSIUM 4.9 mmol/L (3.4-5.0)
[2018-10-29 17:57] VITALS: BP 116/58; PULSE 104; TEMP 99.1
--- NOTE | 2018-10-29 20:14 | NUR ---
Patient agreed to a lab draw today and it only took one stick. See lab results. Patient has agreed to continue to stay here at [facility] following Dr. Santiago visiting with him. Staff is to allow his Ashley to take him out of the building at times so that he can breath some fresh air. This was communicated to production shift supervisor.
--- NOTE | 2018-10-29 21:00 | NUR ---
PT RESTING IN BED. A&O. AT BEDSIDE MARIUSZ. WHEN PT ASKED ABOUT LBM HE REPLIED IT HAS BEEN SEVERAL WEEKS. IT WAS ACTUALLY 10/25. FORGETFUL ABOUT SOME THINGS. DENIED NEED FOR BOWEL MEDS. PT DENIED NEED TO VOID AT THIS TIME. BRIEFS WERE DRY. PT C/O BUNION AREA OF LT FOOT PAINFUL. NO REDNESS SWELLING NOTED. TENDER TO TOUCH. TYLENOL WAS GIVEN AT 1815- NOT EFFECTIVE. GAVE ALLOPURINOL.
[2018-10-30 05:00] VITALS: BP 153/78; PULSE 112; TEMP 98.8
--- NOTE | 2018-10-30 05:34 | NUR ---
HR 112. AFTER JUST WAKING UP. NO DISTRESS. ASSISTED TO BR WITH WALKER. NEEDED ASSIST SITTING UP OTHERWISE SBA. PT INCONT URINE IN PJ BOTTOMS. PT CLEANED UP WITH ASSIST AND CHANGED CLOTHING. PT TRANSFERRED TO RECLINER. CHAIR ALARM SET. CALL LIGHT IN REACH. DENIES FURTHER PAIN TO LT BUNION AREA.
[2018-10-30 18:00] VITALS: BP 127/54; PULSE 111; TEMP 98.7
--- NOTE | 2018-10-30 21:11 | NUR ---
Pt agreed to PRN bowel meds this morning for constipation, allopurinol and tylenol for left great toe gout-like pain. Flonase for nasal congestion. BLE swelling less this morning. Pt to chair between therapies today, pleasant, did respond pain was 10/10 and corrected him that it was 6/10, tylenol given this jac. Report to DANA Davies. Answered lab result questions from . visiting this jac, requested pillow. Report to DANA Montiel.
[2018-10-30 22:03] VITALS: BP 114/54
--- NOTE | 2018-10-30 23:20 | NUR ---
Shift assessment complete. Patient c/o 6/10 pain in left great toe. Prn tylenol given. at bedside. concerned about pt's creat level. She is ok with discussing the elevated level with the Dr tomorrow. She is also concerned that the heparin shots may be causing the elevated creat level. Stated she will talk to the Dr about her concerns tomorrow.
--- NOTE | 2018-10-31 03:58 | NUR ---
Patient ambulated to BR with walker, gait belt, and assist x1. Tolerated well. Denies pain.
[2018-10-31 05:39] VITALS: BP 139/72; PULSE 98; TEMP 97.7
--- NOTE | 2018-10-31 15:25 | NUR ---
Patient resting in bed at this time, call light in reach and shoes are on. Denies pain at this time.
[2018-10-31 16:21] VITALS: BP 107/59; PULSE 102; TEMP 98.5
--- NOTE | 2018-10-31 19:37 | NUR ---
Pt sleeping, but easily arousable. at bedside. Pt states he is sleepy due to taking a PRN Benadryl for swollen to L eye. Eye still swollen. No distress noted. Respriations even and unlabored. Lungs clear. BS+. Pt denies pain. Hospitality Specialist equal, but weak. No needs noted at this time. Will continue to monitor.
--- NOTE | 2018-10-31 20:21 | NUR ---
Patient attended all therapies today. Patient was seen by Dr. Santiago see new orders for Benadryl PRN to help with left eye swelling. See orders to Hold Lisinopril and HCTZ due to kidney function results. Will have labs redrawn on Saturday.
--- NOTE | 2018-10-31 21:30 | NUR ---
Pt's at bedside. Pt refusing Heparin and HS insulin due to 's input. wishes Heparin to be discontinued. Will pass this along to dayshift nurse.
--- NOTE | 2018-11-01 00:23 | NUR ---
Pt sleeping. No distress noted. Respirations even and unlabored. at bedside. Will continue to monitor.
[2018-11-01 05:49] VITALS: BP 109/52; PULSE 105; TEMP 98.4
--- NOTE | 2018-11-01 05:57 | NUR ---
Pt awake with HOB elevated this AM. Blood sugar slightly decreased at 82 this AM despite not being given evening insulins. Pt denies any symptoms of hypoglycemia.
--- NOTE | 2018-11-01 08:00 | NUR ---
Pt lying in bed, breathing even and unlabored. Denies pain or shortness of breath. Completed morning assessment. Lung sounds clear. Pulses equal. Weakness noted with wire turning machine operator. Denies any needs at this time. at bedside, call light in reach.
[2018-11-01 17:39] VITALS: BP 137/66; PULSE 98; TEMP 98.5
--- NOTE | 2018-11-01 17:59 | NUR ---
Pt in chair, finished food tray. Breathing even and unlabared. Denies pain or any needs at this time.
--- NOTE | 2018-11-01 18:48 | NUR ---
Hand off report given to Aaliyah CORTEZ
--- NOTE | 2018-11-01 19:28 | NUR ---
Pt up to chair. No distress noted. Pt denies pain at this time. Pt is weak with greater weakness of right side. Resp even and unlabored. Lungs clear. BS+. 1+ edema noted to BLE. No needs at this time. Will continue to monitor.
--- NOTE | 2018-11-01 21:05 | NUR ---
Pt resting in bed. Medications taken whole without difficulty. at bedside. She is concerned about pt not getting his Lisinopril and HCTZ. Pt has 1+ edema to BLE which she attributes to those meds being on hold. asked for information to be passed on to the dayshift RN.
[2018-11-02 05:52] VITALS: BP 123/75; PULSE 102; TEMP 97.8
--- NOTE | 2018-11-02 05:57 | NUR ---
Pt up to chair this AM. Pt denies pain or needs at this time. Pt slept well throughout the shift with no complaints.
--- NOTE | 2018-11-02 10:26 | NUR ---
Patient resting in recliner at this time, call light in reach and alarm is on. Patient denies pain at this time. spent the night last night and is currently by his side. Patient's stated that patient was going to refuse all heprin injections and SCD's, but that she would be sure to walk him multiple times today. Patient ate 100% of his meal this morning. Will continue to monitor.
[2018-11-02 17:37] VITALS: BP 121/59; PULSE 99; TEMP 98.9
--- NOTE | 2018-11-03 05:02 | NUR ---
RESTING QUIETLY. IN ROOM. ASSIST OF 1 FOR AMBULATION.
[2018-11-03 05:33] VITALS: BP 125/63; PULSE 96; TEMP 98
[2018-11-03 06:43] LABS: BASO % 0.5 % (0.0-2.0); EOS # 0.1 (0.0-0.7); EOS % 1.5 % (0-4.0); GRAN # 3.9 (1.4-6.5); GRAN % 65.1 % (42.2-75.2); LYMPH # 1.3 (1.2-3.4); LYMPH % 21.6 % (20.0-51.0); MEAN CELL VOLUME 94 fl (80.0-100.0); MEAN CORPUSCULAR HGB CONC 31 g/dl (33.0-37.0); MEAN PLATELET VOLUME 10.1 fl (7.4-10.4); MONO # 0.6 (0.1-0.6); MONO % 10.6 % (1.7-9.3); PLATELET COUNT 275 K/mm3 (130-400); REDCELL DISTRIBUTION WIDTH-CV 15.1 % (11.5-14.5)
[2018-11-03 06:45] LABS: HEMATOCRIT 31.9 % (42.0-52.0); HEMOGLOBIN 9.8 g/dl (13.5-18.0); MEAN CORPUSCULAR HEMOGLOBIN 29 pg (27.0-31.0)
[2018-11-03 06:59] LABS: CALCIUM 9.4 mg/dL (8.4-10.2); CREATININE, serum 1.59 (0.66-1.25); MAGNESIUM 1.7 mg/dL (1.6-2.3); POTASSIUM 4.5 mmol/L (3.4-5.0)
--- NOTE | 2018-11-03 07:15 | NUR ---
Patient is sitting up in recliner watching TV. is at bedside. Patient just finished eating breakfast and was ready for pills. asked what medications were and nurse told her. She refused for patient to receive the insulin and for him to only take half his dose of glyburide as that is what he was taking at home. She was upset because she had no idea he was taking 10mg instead of 5 mg. Medication not given per her request. Patient is upset stating that he needs to get out of here and has been here long enough. Patient took medications without issue. Call light and personal items are within reach.
--- NOTE | 2018-11-03 16:56 | NUR ---
Patient is in recliner, is at bedside. declined for patient to receive insulin as he was too low for her liking and did not wish for that to happen again tomorrow morning. Patient also agreed that this would be best. Denies pain. Call light and personal items are within reach. No other needs verbalized.
[2018-11-03 17:00] VITALS: BP 112/64; PULSE 98; TEMP 97.4
--- NOTE | 2018-11-03 22:45 | NUR ---
Shift assessment complete. Patient awake in chair, eating snack. at bedside. Pain 8/10 pain in left foot. Prn tylenol given. Patient and refusing heparin. SCD's to be placed when back in bed. Patient agreeable to plan. BG 240, 6 units sliding scale novolog given. Patient and refusing ordered 4 units (scheduled), novolog. Documented in EMAR. Denied further needs, will continue to monitor.
[2018-11-04 05:46] VITALS: BP 129/68; PULSE 101; TEMP 98.5
--- NOTE | 2018-11-04 08:37 | NUR ---
Report from DANA Montiel. Pt's visiting this morning, states she does not want pt to receive scheduled SSI. Allopurinol given for gout pain.
--- NOTE | 2018-11-04 16:10 | NUR ---
OLYA met with patient and about home health choice. SW provided medicare.gov resource list for home health agencies that service [place]. Patient's reports she would like to do research on the options before making a choice. also inquired about SW contacting [facility] about the size of wheelchair patient needs. OLYA contacted [facility] and informed them of the size of wheelchair patient has been using while he is in [facility]. OLYA will follow up with patient and about home health choice later.
[2018-11-04 18:00] VITALS: BP 119/53; PULSE 96; TEMP 98.6
--- NOTE | 2018-11-04 21:48 | NUR ---
DANA Ramirez assisted with supper meds, reported that declined scheduled heparin and insulin. When scheduling PCP f/u appt with Dr. Palm's office, nurse to leave message to schedule brain MRI in one month. Report to DANA Alvarado. Pt's visiting.
--- NOTE | 2018-11-05 00:24 | NUR ---
Upon assessment patient is sitting up in chair, a bedside. Patient denies pain or n/v. Reports a dry nagging cough. BS checked, 137, patient/family requests that only the 10 Units of Levemir be given at this time. Plan is to go home tomorrow under the care of his . No other needs reported/observed.
[2018-11-05 05:49] VITALS: BP 133/73; PULSE 92; TEMP 98.7
--- NOTE | 2018-11-05 07:31 | NUR ---
Patient report given to Madie Norton. Patient rested comfortably throughout the night. and bedside, provided care for patient. Blood sugar this am was 81, orange juice requested and given. Plan is to discharge home today with and home health.
[2018-11-05] MEDS ORDERED: ZESTRIL 5MG5 MG PO (07:56)
--- NOTE | 2018-11-05 11:00 | NUR ---
OLYA met with patient about and about home health choice. Patient and chose [facility]. OLYA faxed referral and discharge orders to [facility]. Cookie from [facility] reported he will contact patient and tomorrow. OLYA then presented IM to patient and . Patient's signed and was provided a copy.
--- NOTE | 2018-11-05 11:04 | NUR ---
Patient resting in recliner at this time with call light in reach and alarm is on. This nurse just went over discharge paper work with patient and . VOICE WRITING REPORTER is helping them get packed up and ready to leave. Denies pain at this time. Denies any questions at this time.
--- NOTE | 2018-11-05 11:06 | NUR ---
Patient Health Summary, Discharge Summary and Home Meds printed and reviewed with patient and . Stressed importance of follow up appointments. 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 Patient transported via wheelchair by Seun and seatbelted for ride home. Patient and Ashley denied any questions.
== END 2018-11-05 11:10 | disposition home health service (06) | DRG 57 ==
PROVIDERS: ADMIT Internal Medicine
DX: I69.393 Ataxia following cerebral infarction (principal); N39.0 Urinary tract infection, site not specified; I69.328 Other speech and language deficits following cerebral infarction; E11.42 Type 2 diabetes mellitus with diabetic polyneuropathy; G56.01 Carpal tunnel syndrome, right upper limb; I12.9 Hypertensive chronic kidney disease with stage 1 through stage 4 chronic kidney disease, or unspecified chronic kidney disease; E11.22 Type 2 diabetes mellitus with diabetic chronic kidney disease; N18.3 Chronic kidney disease, stage 3 (moderate); D64.9 Anemia, unspecified; M48.061 Spinal stenosis, lumbar region without neurogenic claudication; Z85.46 Personal history of malignant neoplasm of prostate; J45.909 Unspecified asthma, uncomplicated; Z79.4 Long term (current) use of insulin; N40.1 Benign prostatic hyperplasia with lower urinary tract symptoms; N39.498 Other specified urinary incontinence; E78.5 Hyperlipidemia, unspecified; R00.0 Tachycardia, unspecified; B96.89 Other specified bacterial agents as the cause of diseases classified elsewhere; M54.9 Dorsalgia, unspecified; G89.29 Other chronic pain
CPT/HCPCS: 99222-AI; 99232-AI; 99233-AI; 99239; J1644; J1815

== ENCOUNTER → 2018-12-05 | Outpatient (CLI) | payer MEDICARE, OTHER ==
[~2018-12-05] MED LIST changes: +ASPIRIN 81M81 MG/TA2 PO; +BACTRIM DS 8001 TAB PO; +FLONASEALLERGY NS; +NORVASC 10MG10 MG PO; +ZESTRIL 5MG5 MG PO
== END ==
LOC: COL.RAD 13:39
DX: I63.9 Cerebral infarction, unspecified (principal)
CPT/HCPCS: A9585

== ENCOUNTER 2019-01-15 09:46 | Outpatient (CLI) | payer MEDICARE, OTHER ==
[~2019-01-15] VITALS: Ht 165.1 cm; Wt 102.8 kg
[2019-01-15] MEDS ORDERED: PLENDIL 2.5MG2.5 MG PO (10:12)
[2019-01-15] MEDS ORDERED: PRINIVIL40 MG PO (10:14)
[2019-01-15] MEDS ORDERED: BREO IH (10:17)
[2019-01-15 10:26] VITALS: BP 143/81; PULSE 82
[2019-01-15 11:25] VITALS: BP 147/89; PULSE 85
[2019-01-15 11:42] LABS: GLUCOSE,CSF 74 mg/dL (40-70); TOTAL PROTEIN,CSF 88 mg/dL (15-45)
[2019-01-15 12:00] VITALS: BP 148/78; PULSE 80
[2019-01-15 12:20] VITALS: BP 149/92; PULSE 78
[2019-01-15 12:30] LABS: CSF APPEARANCE CLEAR; CSF COLOR COLORLESS; CSF MONONUCLEAR 1 % (70-100); CSF POLYMORPHONUCLEAR 0 % (0-6); CSF RBC 7 /mm3 (0-0)
--- NOTE | 2019-01-15 13:30 | NUR ---
PT WAITS IN W/C FOR LAB DRAW OF RED TOP, LAB UNABLE TO GET BLOOD TODAY, IV SERVICES UNABLE TO SEE PT AT THIS TIME, STATES DID NOT WANT TO WAIT, WANTS TO GO TO [facility] AND GET LAB WORK/RED TOP DRAWN THIS WEEK, DR NASSAR'S OFFICE CALLED, SPOKE WITH NURSE SILVA, SHE WILL FAX ORDERS TO [facility] AND CONTACT PT, PT THEN DISCHARGED VIA W/C WITH
[2019-01-20 12:02] LABS: CSF OLIG BD INTERPRETATION 0 bands (<4); CSF OLIGOCLONAL BANDING 0 bands (()); SE OLIGOCLONAL BANDING 0 bands (())
== END 2019-01-15 14:00 | disposition home or self-care (01) ==
LOC: COL.RAD 09:46
PROVIDERS: Psychiatry & Neurology Neurology
DX: I63.89 Other cerebral infarction (principal); R90.82 White matter disease, unspecified

== ENCOUNTER → 2020-09-16 | Outpatient (CLI) | payer MEDICARE, OTHER | LOC: COL.RAD 07:42 | DX: I67.82 Cerebral ischemia (principal); R29.2 Abnormal reflex; Z86.73 Personal history of transient ischemic attack (TIA), and cerebral infarction without residual deficits | CPT/HCPCS: A9585 ==

== ENCOUNTER 2022-12-07 13:23 | Emergency (ER) | payer MEDICARE, OTHER ==
[~2022-12-07] VITALS: Ht 165.1 cm; Wt 103.2 kg
[2022-12-07 13:28] VITALS: TEMP 98.2
[2022-12-07 15:17] LABS: BASO % 0.3 % (0.0-2.0); EOS # 0.1 K/mm3 (0.0-0.7); EOS % 1.2 % (0.0-4.0); GRAN % 77.4 % (42.2-75.2); HEMATOCRIT 39.9 % (42.0-52.0); HEMOGLOBIN 12.4 g/dl (13.5-18.0); LYMPH % 11.3 % (20.0-51.0); MEAN CELL VOLUME 93 fl (80.0-100.0); MEAN CORPUSCULAR HEMOGLOBIN 29 pg (27-31); MEAN CORPUSCULAR HGB CONC 31 g/dl (33.0-37.0); MEAN PLATELET VOLUME 10.2 fl (7.4-10.4); MONO # 0.9 K/mm3 (0.1-0.6); MONO % 9.4 % (1.7-9.3); PLATELET COUNT 162 K/mm3 (130-400); RED BLOOD COUNT 4.29 M/mm3 (4.20-5.60); REDCELL DISTRIBUTION WIDTH-CV 13.3 % (11.5-14.5)
[2022-12-07 15:48] LABS: ALANINE AMINOTRANSFERASE 18 U/L (0-55); ALBUMIN 4.1 gm/dL (3.4-4.8); ALKALINE PHOSPHATASE 74 U/L (40-150); ANION GAP 11 mmol/L (7-16); AST,SGOT 23 U/L (5-34); BILIRUBIN,TOTAL 1.5 mg/dL (0.2-1.2); BLOOD UREA NITROGEN 27 mg/dL (8-26); CALCIUM 9.7 mg/dL (8.4-10.2); CARBON DIOXIDE 23 mmol/L (23-31); CHLORIDE 105 mmol/L (98-107); CREATININE, serum 1.83 mg/dL (0.72-1.25); GLUCOSE 144 mg/dL (70-99); POTASSIUM 4.5 mmol/L (3.5-4.5); SODIUM 139 mmol/L (136-145)
[2022-12-07 15:55] LABS: TROPONIN-I < 0.010 ng/mL (0.00-0.033)
[2022-12-07 16:50] VITALS: BP 159/104; PULSE 92
== END 2022-12-07 16:50 | disposition home or self-care (01) ==
LOC: COL.ER 13:23
PROVIDERS: Physician Assistant
DX: I12.9 Hypertensive chronic kidney disease with stage 1 through stage 4 chronic kidney disease, or unspecified chronic kidney disease (principal); E11.22 Type 2 diabetes mellitus with diabetic chronic kidney disease; N18.9 Chronic kidney disease, unspecified; Z86.73 Personal history of transient ischemic attack (TIA), and cerebral infarction without residual deficits